=== PATIENT | male | born 1980 | race Caucasian/White ===

== ENCOUNTER 2019-05-02 04:54 | Emergency (ER) | payer MEDICARE, OTHER ==
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
[2019-05-02] MEDS ORDERED: OXYC-823 PO (05:19)
[2019-05-02] MEDS ORDERED: METO25TA23 PO (05:19)
[2019-05-02] MEDS ORDERED: PRAV20TA65 PO (05:19)
[2019-05-02] MEDS ORDERED: OMEG10007 PO (05:19)
[2019-05-02] MEDS ORDERED: GABA-551 PO (05:19)
[2019-05-02] MEDS ORDERED: CHOL10005 PO (05:19)
[2019-05-02] MEDS ORDERED: CYAN250013 PO (05:19)
[2019-05-02] MEDS ORDERED: CIPR-344 PO (05:28)
[2019-05-02 05:30] VITALS: BP 105/71
[2019-05-02] MEDS ORDERED: CIPROFLOXACIN 500 MG TAB PO ONE (05:30)
[2019-05-02] MEDS ORDERED: CEFUROXIME AXETIL 250 MG TAB PO ONE (05:30)
== END 2019-05-02 05:36 | disposition home or self-care (01) ==
LOC: ER 05:19
DX: N30.00 Acute cystitis without hematuria (principal)
CPT/HCPCS: 81001; 87077; 87088; 87186; 99282; A9270